=== PATIENT | female | born 1950 | race Caucasian/White ===

== ENCOUNTER 2017-07-08 14:50 | Emergency (ER) | payer OTHER ==
--- NOTE | 2017-07-08 14:51 | PDOC ---
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 The patient had a PET scan, which looked normal. She was sent to the ED for further testing. She is complaining of RLQ pain than radiates to her back. She also endorses some nausea but states that it may be due to her chemotherapy. She also states that she has been eating/drinking less than she normally does. She also states that in Apr 2017 she was hospitalized for 10 days due to a viral infection that affected her lungs. She was put on at home oxygen and states that she hasn't used it for the past 1.5 weeks. She does, however, becomes occasionally short of breath. She denies any diarrhea or constipation. She denies dysuria, h/o kidney stones. The patient denies any chest pain or palpitations. The patient denies any fever, chills, headache, cough, nausea, or vomiting. Allergies: None reported. Past Surgical History: Right Mastectomy Social History: Former smoker. PCP: Dr. Mccray <Luna Tom - Last Filed: 07/08/17 17:46> <Naya Jauregui - Last Filed: 07/08/17 17:47> - General Chief Complaint: Pain Stated Complaint: ABD PAIN Time Seen by Provider: 07/08/17 14:51 Past History <Luna Tom - Last Filed: 07/08/17 17:46> - Suicide/Smoking/Psychosocial Hx Smoking History: Current some day smoker Number of Cigarettes Smoked Daily: 1 'Breaking Loose' booklet given: 02/20/16 Hx Alcohol Use: No Drug/Substance Use Hx: No Substance Use Type: None <Naya Jauregui - Last Filed: 07/08/17 17:47> - Past Medical History Allergies/Adverse Reactions: Allergies Allergy/AdvReac Type Severity Reaction Status Date / Time No Known Allergies Allergy Verified 07/08/17 14:51 Home Medications: Ambulatory Orders Furosemide [Lasix -] 20 mg PO DAILY 02/20/16 Ondansetron HCl [Zofran] 8 mg PO PRN PRN 02/20/16 Potassium Chloride 20 meq PO DAILY 02/20/16 Lansoprazole [Prevacid] 30 mg PO DAILY 07/08/17 Morphine Pump 07/08/17 Review of Systems - Review of Systems Comments:: 07/08/17 15:22 GENERAL/CONSTITUTIONAL: No fever or chills. No weakness. HEAD, EYES, EARS, NOSE AND THROAT: No change in vision. No ear pain or discharge. No sore throat. GASTROINTESTINAL: +abdominal pain +nausea.No vomiting, diarrhea or constipation. GENITOURINARY: No dysuria, frequency, or change in urination. CARDIOVASCULAR: No chest pain or shortness of breath. RESPIRATORY: +sob. No cough, wheezing, or hemoptysis. MUSCULOSKELETAL: No joint or muscle swelling or pain. No neck or back pain. SKIN: No rash NEUROLOGIC: No headache, vertigo, loss of consciousness, or change in strength/ sensation. ENDOCRINE: No increased thirst. No abnormal weight change. HEMATOLOGIC/LYMPHATIC: No anemia, easy bleeding, or history of blood clots. ALLERGIC/IMMUNOLOGIC: No hives or skin allergy. <Luna Tom - Last Filed: 07/08/17 17:46> *Physical Exam - Vital Signs Last Vital Signs Temp Pulse Resp BP Pulse Ox 97.9 F 87 18 147/97 96 07/08/17 14:50 07/08/17 14:50 07/08/17 14:50 07/08/17 14:50 07/08/17 14:50 <Luna Tom - Last Filed: 07/08/17 17:46> - Physical Exam Comments: GENERAL: Awake, alert, and fully oriented, in no acute distress HEAD: No signs of trauma EYES: PERRLA, EOMI, sclera anicteric, conjunctiva clear ENT: Auricles normal inspection, hearing grossly normal, nares patent, oropharynx clear without exudates. Dry mucosa NECK: Normal ROM, supple, no lymphadenopathy, JVD, or masses LUNGS: Breath sounds equal, clear to auscultation bilaterally. No wheezes, and no crackles HEART: Regular rate and rhythm, normal S1 and S2, no murmurs, rubs or gallops ABDOMEN: Soft, +RLQ TTP with guarding. +Hypperactive bowel sounds. No rebound. No masses EXTREMITIES: Normal range of motion, no edema. No clubbing or cyanosis. No cords, erythema, or tenderness NEUROLOGICAL: Cranial nerves II through XII grossly intact. Normal speech, normal gait SKIN: Warm, Dry, normal turgor, no rashes or lesions noted. <Naya Jauregui - Last Filed: 07/08/17 17:47> ED Treatment Course - LABORATORY CBC & Chemistry Diagram: 07/08/17 15:09 07/08/17 15:09 - RADIOLOGY Radiograph Interpretation: CT Abdomen & Pelvis with contrast Impression: No definite CT findings of acute pathology are identified. There is no definite CT evidence of colitis. Mild to moderate colitis may not be demonstrable on CT. Small non-obstructing left renal calculi. Reported By: Yair Stewart MD 07/08/17 1723 07/08/17 17:30 <Luna Tom - Last Filed: 07/08/17 17:46> - LABORATORY CBC & Chemistry Diagram: 07/08/17 15:09 07/08/17 15:09 <Naya Jauregui - Last Filed: 07/08/17 17:47> Medical Decision Making - Medical Decision Making 07/08/17 17:[address] Mccray with an update, however, he is not sale professional digital marketing today. Will provide patient with a copy of results. Awaiting UA at present. 07/08/17 17:35 CT results d/w patient. She has given urine sample, await UA results. 07/08/17 17:47 UA wnl. Counseled patient to continue to f/u with Dr. Mccray and her primary care physician. <Naya Jauregui - Last Filed: 07/08/17 17:47> *DC/Admit/Observation/Transfer - Attestations Scribe Attestion: 07/08/17 15:25 Documentation prepared by Luna Tom, acting as ophthalmic medical technician for Naya Jauregui MD. <Luna Tom - Last Filed: 07/08/17 17:46> - Discharge Dispostion Admit: No <Naya Jauregui - Last Filed: 07/08/17 17:47> Diagnosis at time of Disposition: Abdominal pain Qualifiers: Abdominal location: lower abdomen, unspecified Qualified Code(s): R10.30 - Lower abdominal pain, unspecified - Discharge Dispostion Disposition: HOME Condition at time of disposition: Stable - Referrals Referrals: Dougie Wall MD [Primary Care Provider] - - Patient Instructions Printed Discharge Instructions: DI for Abdominal Pain-Adult - Post Discharge Activity
[2017-07-08 15:06] VITALS: BP 147/97; PULSE 87; TEMP 97.9; BMI 24.7
[2017-07-08] MEDS ORDERED: SODIUM CHLORIDE 500 ML IV STA (15:13)
[2017-07-08 15:27] LABS: BASO % 0.4 % (0-2.0); EOS % 1.6 % (0-4.5); HEMATOCRIT 39.4 % (32.4-45.2); HEMOGLOBIN 13.3 GM/dl (10.7-15.3); LYMPH % 45.8 % (8-40); MCH 28.2 pg (25.7-33.7); MCHC 33.8 g/dl (32.0-36.0); MEAN CELL VOLUME 83.4 fl (80-96); MEAN PLT VOLUME 8.8 fl (7.5-11.1); MONO % 10.8 % (3.8-10.2); NEUT % 41.4 % (42.8-82.8); PLATELET COUNT 286 K/MM3 (134-434); RBC 4.73 M/mm3 (3.60-5.2); RDW 14.3 % (11.6-15.6); WHITE BLOOD COUNT 7.2 K/mm3 (4.0-10.8)
[2017-07-08 15:49] LABS: ALK PHOS 53 U/L (32-92); ANION GAP 7 (8-16); BILIRUBIN,TOTAL 0.7 mg/dl (0.2-1.0); BLOOD UREA NITROGEN 18 mg/dl (7-18); CALCIUM 9.6 mg/dl (8.4-10.2); CHLORIDE 98 mmol/L (98-107); CO2 30 mmol/L (22-28); GLUCOSE,RANDOM 96 mg/dl (74-106); POTASSIUM 3.4 mmol/L (3.5-5.1); SGOT/AST 39 U/L (10-42); SGPT/ALT 30 U/L (10-40); SODIUM 135 mmol/L (136-145); TOT PROT 7.8 g/dl (6.4-8.3)
[2017-07-08 16:11] LABS: CREATININE 0.8 mg/dl (0.6-1.3)
[2017-07-08 17:39] LABS: URINE APPEARANCE Clear; URINE BILIRUBIN Negative (NEGATIVE); URINE BLOOD Negative (NEGATIVE); URINE GLUCOSE (UA) Negative (NEGATIVE); URINE KETONE Negative (NEGATIVE); URINE NITRITE Negative (NEGATIVE); URINE PROTEIN Negative (NEGATIVE); URINE UROBILINOGEN 0.2 (0.2-1.0)
[2017-07-08 17:41] LABS: URINE LEUK ESTERASE TRACE (NEGATIVE)
[2017-07-08 17:42] LABS: URINE COLOR YELLOW
[2017-07-08 18:07] LABS: EPI CELLS FEW /HPF; URINE BACTERIA FEW /hpf (NEGATIVE); URINE RBC 0-2 /hpf (0-3)
== END 2017-07-08 18:05 | disposition home or self-care (01) ==
LOC: FER 14:50
PROC: 3E0337Z Introduction of Electrolytic and Water Balance Substance into Peripheral Vein, Percutaneous Approach (ICD-10-PCS; principal; 2017-07-08)
DX: R10.30 Lower abdominal pain, unspecified (principal); Z85.3 Personal history of malignant neoplasm of breast; F17.210 Nicotine dependence, cigarettes, uncomplicated
CPT/HCPCS: 36415; 74177-TC; 80053; 81003; 81015; 85025; 87086; 96360; 99284-25